=== PATIENT | male | born 1965 | race Hispanic/Latino ===

== ENCOUNTER 2019-11-28 09:07 | Emergency (ER) | payer SELFPAY ==
[~2019-11-28] VITALS: Ht 170.2 cm; Wt 93.6 kg
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
[2019-11-28 10:13] VITALS: BP 156/91
--- NOTE | 2019-11-28 11:05 | Diagnostic Imaging Report ---
Radiographs of the left foot - 3 views HISTORY: Pain COMPARISON: None available. FINDINGS: Bones: Obliquely oriented nondisplaced fracture involving the midportion of the proximal phalanx of the third toe with soft tissue swelling. Obliquely oriented intra-articular minimally displaced fracture involving the proximal portion of the proximal phalanx of the left fifth toe. Partially imaged metallic surgical hardware in the distal tibia and fibula. Osseous alignment is within normal limits. Joints: Scattered degenerative change. No osseous erosion. Soft tissues: The soft tissues appear unremarkable. IMPRESSION: Obliquely oriented nondisplaced fracture involving the midportion of the proximal phalanx of the third toe with soft tissue swelling. Obliquely oriented intra-articular minimally displaced fracture involving the proximal portion of the proximal phalanx of the left fifth toe. Signed by: Dr. Js Oh M.D. on 11/28/2019 9:49 AM
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
== END 2019-11-28 11:34 | disposition home or self-care (01) ==
LOC: FSED 09:07
DX: S92.515A Nondisplaced fracture of proximal phalanx of left lesser toe(s), initial encounter for closed fracture (principal); M79.675 Pain in left toe(s); W23.1XXA Caught, crushed, jammed, or pinched between stationary objects, initial encounter; Y93.83 Activity, rough housing and horseplay; Y92.89 Other specified places as the place of occurrence of the external cause; I10 Essential (primary) hypertension
CPT/HCPCS: 99283